=== PATIENT | male | born 1995 | race Caucasian/White ===

== ENCOUNTER 2017-01-29 03:00 | Emergency (ER) | payer OTHER ==
[~2017-01-29] VITALS: Ht 193 cm; Wt 72.5 kg
[~2017-01-29 03:00] MED LIST: BACL20TA PO; MIRA33504 PO; MISC-289; PROP15TA PO; TIZA4CAP3 PO; TRAM50TA PO
[2017-01-29 03:13] VITALS: BP 141/84; PULSE 78; RESP 18; TEMP 98.5; O2SAT 100
--- NOTE | 2017-01-29 03:25 | PD ---
HPI Chief Complaint: Pain: Acute or Chronic Time Seen by Provider: 03:25 Travel History International Travel<30 days: No Contact w/Intl Traveler<30days: No Traveled to known affect area: No History of Present Illness HPI Patient is a 21-year-old male presenting to the emergency department for evaluation of back spasms. Patient states he's had them for over a year since he broke his thoracic spine. He states that for the last several days they have been worse, he has been in physical therapy and 3 days ago he felt as if his back "". He states the cramping became so severe that he had to call 911. Patient has a history of the same, this is an ongoing chronic problem with occasional acute exacerbations. Patient reported the pain is 8 out of 10. PFSH Past Medical History Neurologic: Yes (thoracic spine fracture, paraplegic) Past Surgical History Thoracic Surgery: Yes (thoracic spine) Social History Alcohol Use: No Tobacco Use: No Substance Use: No Allergies-Medications (Allergen,Severity, Reaction): Coded Allergies: No Known Allergies (Unverified , 11/10/15) Reported Meds & Prescriptions Reported Meds & Active Scripts Active Tramadol (Tramadol HCl) 50 Mg Tab 50 Mg PO Q6H PRN Orphenadrine ER 12 HR (Orphenadrine Citrate) 100 Mg Tab 100 Mg PO Q12HR 14 Days Baclofen 20 Mg Tab 40 Mg PO TID Propantheline [place] 15 Mg Tab 15 Mg PO TID Tramadol (Tramadol HCl) 50 Mg Tab 100 Mg PO Q12HR PRN Tizanidine (Tizanidine HCl) 4 Mg Cap 4 Mg PO BID Miralax Powder (Polyethylene Glycol 3350 Powder) 17 Gm Powd 17 Gm PO DAILY PRN 60 Days Mix and dissolve one measuring cap-ful (17 grams) in water or juice. Bath Bench with Back (Device) 1 Mis Mis 1 Ea .ROUTE DIRECTED Review of Systems Except as stated in HPI: all other systems reviewed are Neg Musculoskeletal: Positive: Cramping Physical Exam Narrative GENERAL: Thin, well-developed, alert male. Resting comfortably in no acute distress. SKIN: Focused skin assessment warm/dry. HEAD: Atraumatic. Normocephalic. EYES: Pupils equal and round. No scleral icterus. No injection or drainage. ENT: No nasal bleeding or discharge. Mucous membranes pink and moist. NECK: Trachea midline. No JVD. CARDIOVASCULAR: Regular rate and rhythm. No murmur appreciated. RESPIRATORY: No accessory muscle use. Clear to auscultation. Breath sounds equal bilaterally. GASTROINTESTINAL: Abdomen soft, non-tender, nondistended. Hepatic and splenic margins not palpable. MUSCULOSKELETAL: No obvious deformities. No clubbing. No cyanosis. No edema. NEUROLOGICAL: Awake and alert. No obvious cranial nerve deficits. Normal speech. No tenderness to palpation to cervical, thoracic, or lumbar spine. PSYCHIATRIC: Appropriate mood and affect; insight and judgment normal. Data Data Last Documented VS Vital Signs Date Time Temp Pulse Resp B/P Pulse Ox O2 Delivery O2 Flow Rate FiO2 01/29/17 03:13 98.5 78 18 141/84 100 Orders Comprehensive Metabolic Panel (01/29/17 03:22) Magnesium (Mg) (01/29/17 03:22) Ct Thor Spine W/O Contrast (01/29/17 ) Iv Access Insert/Monitor (01/29/17 03:22) Ketorolac Inj (Toradol Inj) (01/29/17 03:30) Orphenadrine Inj (Norflex Inj) (01/29/17 03:30) Labs Laboratory Tests Test 01/29/17 03:40 Sodium Level 144 MEQ/L Potassium Level 3.7 MEQ/L Chloride Level 108 MEQ/L Carbon Dioxide Level 28.7 MEQ/L Anion Gap 7 MEQ/L Blood Urea Nitrogen 10 MG/DL Creatinine 0.70 MG/DL Estimat Glomerular Filtration 141 ML/MIN Rate Random Glucose 96 MG/DL Calcium Level 9.0 MG/DL Magnesium Level 1.8 MG/DL Total Bilirubin 0.3 MG/DL Aspartate Amino Transf 16 U/L (AST/SGOT) Alanine Aminotransferase 23 U/L (ALT/SGPT) Alkaline Phosphatase 108 U/L Total Protein 7.2 GM/DL Albumin 3.5 GM/DL MDM Medical Decision Making Medical Screen Exam Complete: Yes Emergency Medical Condition: Yes Medical Record Reviewed: Yes Interpretation(s) Last Impressions Thoracic Spine CT 01/29/17 0000 Signed Impressions: Service Date/Time: Sunday, January 29, 2017 03:49 - CONCLUSION: When compared to conventional radiographs 12/01/15, the anterolisthesis of the superior thoracic column with respect to the inferior thoracic column, is similar. Burst fracture fragments at T7 are similar to prior examination with the posterior fragment which protrudes approximately 9 mm into the bony spinal canal. Gregory Salinas MD Laboratory Tests Test 01/29/17 03:40 Sodium Level 144 MEQ/L Potassium Level 3.7 MEQ/L Chloride Level 108 MEQ/L Carbon Dioxide Level 28.7 MEQ/L Anion Gap 7 MEQ/L Blood Urea Nitrogen 10 MG/DL Creatinine 0.70 MG/DL Estimat Glomerular Filtration 141 ML/MIN Rate Random Glucose 96 MG/DL Calcium Level 9.0 MG/DL Magnesium Level 1.8 MG/DL Total Bilirubin 0.3 MG/DL Aspartate Amino Transf 16 U/L (AST/SGOT) Alanine Aminotransferase 23 U/L (ALT/SGPT) Alkaline Phosphatase 108 U/L Total Protein 7.2 GM/DL Albumin 3.5 GM/DL Vital Signs Date Time Temp Pulse Resp B/P Pulse Ox O2 Delivery O2 Flow Rate FiO2 01/29/17 03:13 98.5 78 18 141/84 100 Differential Diagnosis Spasm versus strain versus discogenic pain versus electrolyte abnormality versus other Narrative Course Patient is a 21-year-old male presenting to the emergency room for evaluation of back spasms. Patient has a history of the same secondary to being involved in an [facility] where he subsequently suffered thoracic spine fractures, since that time he states dealt with muscle spasms and takes baclofen however for the last several days his spasms have been getting worse. Imaging of the thoracic spine ordered secondary to patient feeling something "". We'll check electrolytes to rule out normality as a cause for worsening spasms. Patient was given Toradol and Norflex. Will reassess. Patient reassessed approximately one hour after administration, he reports improvement in his symptoms. Labs and imaging were unremarkable, there was no change in CT scan. Patient will be prescribed orphenadrine twice a day, he was advised to avoid taking baclofen and tizanidine will taking orphenadrine. He was also given a short course of tramadol for breakthrough pain. Ice to follow- up with his primary doctor. He was encouraged to return to emergency department for any new or worsening symptoms. Patient verbalized understanding of instructions. Patient is stable for discharge. Diagnosis Primary Impression: Spastic paraplegia Referrals: Primary Care Physician Patient Instructions: General Instructions, Muscle Spasm (ED) Additional Instructions: If you take orphenadrine do not take baclofen or tizanidine at the same time. Follow-up with your primary doctor Return to emergency department for any new or worsening symptoms Med/Other Pt SpecificInfo: Prescription(s) given Scripts Tramadol 50 Mg Tab50 Mg PO Q6H PRN (PAIN) #12 TAB Ref 0 Prov:Jacob Joyner MD 01/29/17 Orphenadrine ER 12 HR 100 Mg [id number] Mg PO Q12HR 14 Days Ref 0 Prov:Jacob Joyner MD 01/29/17 Disposition: 01 DISCHARGE HOME Condition: Stable Jigna Sosa Jan 29, 2017 03:25
[2017-01-29] MEDS ORDERED: ORPHENADRINE INJ 60 MG/2 ML AMP IV ONE (03:30)
[2017-01-29] MEDS ORDERED: KETOROLAC TROMETHAMINE 30 MG/ML (IVP) VIAL IV PUSH ONE (03:30)
[2017-01-29 04:12] LABS: ALT (GPT) 23 U/L (12-78); ANION GAP 7 MEQ/L (5-15); AST (GOT) 16 U/L (15-37); BICARBONATE 28.7 MEQ/L (21.0-32.0); BLOOD UREA NITROGEN 10 MG/DL (7-18); CHLORIDE 108 MEQ/L (98-107); GLOMERULAR FILTRATION RATE 141 ML/MIN (>89); MAGNESIUM 1.8 MG/DL (1.5-2.5); POTASSIUM 3.7 MEQ/L (3.5-5.1); SODIUM (NA) 144 MEQ/L (136-145)
[2017-01-29 04:14] LABS: ALKALINE PHOSPHATASE 108 U/L (45-117); TOTAL BILIRUBIN ADULT 0.3 MG/DL (0.2-1.0)
--- NOTE | 2017-01-29 04:35 | RADRPT ---
EXAM DATE/TIME: 01/29/2017 03:49 [facility] COMPARISON: SPINE THORACIC AP/LAT/SW (3VW), December 01, 2015, 16:24. SPINE THORACIC AP/LAT/SW (3VW), January 17, 2016 , 13:12. CT THORACIC SPINE W/O CONTRAST, November 09, 2015, 10:15. INDICATIONS : Back pain. No recent trauma; history of fusion. RADIATION DOSE: 35.85 CTDIvol (mGy) MEDICAL HISTORY : Hernia, inguinal. Paraplegic. SURGICAL HISTORY : Inguinal hernia repair. Spinal injury, T3-T10 fusion. ENCOUNTER: Initial ACUITY: 4 - 6 days PAIN SCALE: 8/10 LOCATION: thoracic. TECHNIQUE: Volumetric scanning of the thoracic spine was performed. Multiplanar reconstructions in the sagittal , coronal and oblique axial planes were performed. Using automated exposure control and adjustment o f the mA and/or kV according to patient size, radiation dose was kept as low as reasonably achievable to obtain optimal diagnostic quality images. DICOM format image data is available electronically f or review and comparison. FINDINGS: The patient has undergone surgery to stabilize fractures of the posterior elements T6, burst fracture of T7, and T8 fracture involving the right vertebral body and bilateral posterior elements. Transpe dicular screws are present at T3, T4, T5, T8, T9, and T10. The hardware appears grossly intact. The distal fracture fragments at T7 are in similar configuration to the initial trauma CT with large dis placed fragments on both the left and right side, and a posterior displaced fragment in continuity wi th the left lamina extending into the bony spinal canal approximately 9 mm. There is a reversal of t he thoracic curvature at the T7 level at the thoracic column down to T6 is displaced anteriorly with respect to the thoracic column from T8-T9. The degree of anterior subluxation is difficult to precis scar measure, but is on the order of 6 mm. The transpedicular screws at T3 and T4 within the vertebral body. The tip of the left T5 screw exten ds approximately 8 mm anterior to the cortex of the vertebral body and is in contact with the descend ing thoracic aorta. At the T6 level, there is bony fusion of the lamina are fragments. No bony fragments within the bony spinal canal. There is no displacement of the cortical fracture right inner cortical ring about the thecal sac. At the T7 level, there is some bony fusion of the lateral mass fragments, there is no bony fusion acr oss either fracture between the vertebral body and pedicle. At T8, T9, and T10, the transpedicular screw tips are within the vertebral bodies. CONCLUSION: When compared to conventional radiographs 12/01/15, the anterolisthesis of the superior thoracic colum n with respect to the inferior thoracic column, is similar. Burst fracture fragments at T7 are simil ar to prior examination with the posterior fragment which protrudes approximately 9 mm into the bony spinal canal. Gregory Salinas MD on January 29, 2017 at 4:17 Board Certified Radiologist. This report was verified electronically.
[2017-01-29] MEDS ORDERED: ORPH100T PO (05:08)
[2017-01-29] MEDS ORDERED: TRAM50TA PO (05:08)
[2017-02-01] MEDS ORDERED: TIZA4CAP3 PO (13:44)
[2017-02-01] MEDS ORDERED: BACL20TA PO (13:44)
[2017-02-05] MEDS ORDERED: MIRA3350 PO (09:20)
[2017-02-13] MEDS ORDERED: TIZA4CAP3 PO (16:07)
== END 2017-01-29 05:40 | disposition home or self-care (01) ==
LOC: NEPD 03:00
DX: M62.830 Muscle spasm of back (principal); G82.20 Paraplegia, unspecified; Z79.899 Other long term (current) drug therapy
CPT/HCPCS: 72128; 80053; 83735; 96374; 96375; 99285; J1885; J2360

== ENCOUNTER 2017-02-02 18:11 | Emergency (ER) | payer SELFPAY ==
[~2017-02-02] VITALS: Ht 193 cm; Wt 70.0 kg
[~2017-02-02 18:11] MED LIST changes: +ORPH100T PO
[2017-02-02 18:14] VITALS: BP 155/98; PULSE 114; RESP 17; TEMP 98.6; O2SAT 98
--- NOTE | 2017-02-02 18:25 | PD ---
Physical Exam Time Seen by Provider: 18:24 Narrative 21 y/o male w/ hx of paraplegia presents for evaluation of R hip pressure 2-3 days, referred here by pcp. Vital signs reviewed. Seen at triage desk. Awaiting bed placement. Data Data Last Documented VS Vital Signs Date Time Temp Pulse Resp B/P Pulse Ox O2 Delivery O2 Flow Rate FiO2 02/02/17 18:14 98.6 114 17 155/98 98 MDM Medical Record Reviewed: Yes Supervised Visit with TIMOTHY: Pedro De La Cruz Feb 02, 2017 18:25
--- NOTE | 2017-02-02 20:01 | RADRPT ---
EXAM DATE/TIME: 02/02/2017 19:41 [facility] COMPARISON: No previous studies available for comparison. INDICATIONS : Right hip pain and spasms. MEDICAL HISTORY : paraplegic. SURGICAL HISTORY : None. ENCOUNTER: Initial ACUITY: 2 days PAIN SCORE: 10/10 LOCATION: Right hip. FINDINGS: 2 AP views of the pelvis were obtained and are mildly rotated. Crosstable lateral views of the right hip were obtained as well. The hips appear intact with no evidence of fracture or malalignment. The r ight hip is externally rotated. CONCLUSION: Non-standard study secondary to rotation with no acute fracture or malalignment. The right hip is ext ernally rotated. Ulisses Mcwilliams MD on February 02, 2017 at 19:57 Board Certified Radiologist. This report was verified electronically.
--- NOTE | 2017-02-02 20:56 | PD ---
HPI Chief Complaint: Hip Injury Time Seen by Provider: 19:24 Travel History International Travel<30 days: No Contact w/Intl Traveler<30days: No Traveled to known affect area: No History of Present Illness HPI Patient is a 21 y/o male with history of paraplegia, presents for evaluation of R hip pressure vs possible hip dislocation. patient reports that he has been feeling this sensation to his right hip for the past 2-3 days. Patient denies any trauma or fall. Patient reports that he saw his primary care doctor yesterday who ordered x-rays of his hip, reports that he has not gone for these xrays yet. Reports increased discomfort today. He called his pcp who told him to come to the ER for xrays of his hip. NO fever/chills. No other c/o. PFSH Past Medical History Arthritis: Yes Neurologic: Yes (thoracic spine fracture, paraplegic) Influenza Vaccination: No Past Surgical History Neurologic Surgery: Yes (BACK SURGERY 2016 T6-T7) Thoracic Surgery: Yes (thoracic spine) Other Surgery: Yes (L TOE AND L KNEE) Social History Alcohol Use: No Tobacco Use: No Substance Use: No Allergies-Medications (Allergen,Severity, Reaction): Coded Allergies: No Known Allergies (Unverified , 02/02/17) Reported Meds & Prescriptions Reported Meds & Active Scripts Active Baclofen 20 Mg Tab 40 Mg PO TID Tizanidine (Tizanidine HCl) 4 Mg Cap 4 Mg PO BID Orphenadrine ER 12 HR (Orphenadrine Citrate) 100 Mg Tab 100 Mg PO Q12HR 14 Days Propantheline [place] 15 Mg Tab 15 Mg PO TID Tramadol (Tramadol HCl) 50 Mg Tab 100 Mg PO Q12HR PRN Review of Systems General / Constitutional: No: Fever Eyes: No: Visual changes HENT: No: Headaches Cardiovascular: No: Chest Pain or Discomfort Respiratory: No: Shortness of Breath Gastrointestinal: No: Abdominal Pain Genitourinary: No: Dysuria Musculoskeletal: Positive: Pain (right hip pain) Skin: No Rash Neurologic: No: Weakness Psychiatric: No: Depression Endocrine: No: Polydipsia Hematologic/Lymphatic: No: Easy Bruising Physical Exam Narrative GENERAL: NAD SKIN: Focused skin assessment warm/dry. HEAD: Atraumatic. Normocephalic. EYES: Pupils equal and round. No scleral icterus. No injection or drainage. ENT: No nasal bleeding or discharge. Mucous membranes pink and moist. NECK: Trachea midline. No JVD. CARDIOVASCULAR: Regular rate and rhythm. No murmur appreciated. RESPIRATORY: No accessory muscle use. Clear to auscultation. Breath sounds equal bilaterally. GASTROINTESTINAL: Abdomen soft, non-tender, nondistended. Hepatic and splenic margins not palpable. MUSCULOSKELETAL: No obvious deformities. patient contracted to lower extremities , pain with ROM to right hip NEUROLOGICAL: Awake and alert PSYCHIATRIC: Appropriate mood and affect; insight and judgment normal. Data Data Last Documented VS Vital Signs Date Time Temp Pulse Resp B/P Pulse Ox O2 Delivery O2 Flow Rate FiO2 02/02/17 18:14 98.6 114 17 155/98 98 Orders Hip, Uni(Ap&Lat) W Ap Pelvis (02/02/17 ) Ibuprofen (Motrin) (02/02/17 21:00) MDM Medical Decision Making Medical Screen Exam Complete: Yes Emergency Medical Condition: Yes Interpretation(s) Vital Signs Date Time Temp Pulse Resp B/P Pulse Ox O2 Delivery O2 Flow Rate FiO2 02/02/17 18:14 98.6 114 17 155/98 98 Differential Diagnosis hip dislocation vs fracture vs sprain Narrative Course 21 year old male with right sided hip pain for past 2-3 days. no trauma xray of hip ordered. Last Impressions Hip and Pelvis X-Ray 02/02/17 0000 Signed Impressions: Service Date/Time: Sunday, February 02, 2017 19:41 - CONCLUSION: Non-standard study secondary to rotation with no acute fracture or malalignment. The right hip is externally rotated. Ulisses Mcwilliams MD patient contracted at baseline - xray with no acute fracture or malalignment. will have patient follow up with pcp and return to ER as needed Diagnosis Primary Impression: Hip pain, right Patient Instructions: General Instructions Additional Instructions: Please follow up with your primary care doctor Return to ER as needed Please bring your copy of your xray to your doctor's office for follow up Disposition: 01 DISCHARGE HOME Condition: Stable Jessica Mcfarlane DO Feb 02, 2017 20:56
[2017-02-02] MEDS ORDERED: IBUPROFEN 600 MG TAB PO ONE (21:00)
[2017-02-05] MEDS ORDERED: MIRA3350 PO (09:20)
== END 2017-02-02 21:49 | disposition home or self-care (01) ==
LOC: NEPE 18:11
DX: M25.551 Pain in right hip (principal); G82.20 Paraplegia, unspecified; M19.90 Unspecified osteoarthritis, unspecified site; Z79.899 Other long term (current) drug therapy
CPT/HCPCS: 73502; 99283

== ENCOUNTER 2017-02-08 04:57 | Emergency (ER) | payer SELFPAY ==
[~2017-02-08] VITALS: Ht 182.9 cm; Wt 70.0 kg
[~2017-02-08 04:57] MED LIST changes: +MIRA3350 PO; -MIRA33504 PO; -MISC-289
[2017-02-08 05:02] VITALS: BP 131/64; PULSE 82; RESP 18; TEMP 97.6; O2SAT 99
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
[2017-02-08] MEDS ORDERED: MORPHINE SULFATE 4 MG/ML INJ IM ONE (05:30)
[2017-02-08] MEDS ORDERED: ORPHENADRINE INJ 60 MG/2 ML AMP IM ONE (05:45)
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
[2017-02-08] MEDS ORDERED: TIZA4CAP3 PO (12:24)
[2017-02-08] MEDS ORDERED: TRAM50TA PO (12:25)
[2017-02-13] MEDS ORDERED: TIZA4CAP3 PO (16:07)
== END 2017-02-08 06:50 | disposition home or self-care (01) ==
LOC: NEPE 04:57
DX: M62.838 Other muscle spasm (principal); G83.9 Paralytic syndrome, unspecified; M25.561 Pain in right knee; W22.8XXA Striking against or struck by other objects, initial encounter; Y93.89 Activity, other specified; Y92.003 Bedroom of unspecified non-institutional (private) residence as the place of occurrence of the external cause
CPT/HCPCS: 73560; 96372; 99284; J2270; J2360

== ENCOUNTER 2017-05-08 18:01 | Emergency (ER) | payer MEDICAID, OTHER ==
[~2017-05-08] VITALS: Ht 193 cm; Wt 70.0 kg
[2017-05-08 18:03] VITALS: BP 119/57; PULSE 105; RESP 18; TEMP 98.8; O2SAT 99
--- NOTE | 2017-05-08 21:09 | PD ---
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 He presents for evaluation of left-sided rib cage pain. He reports that yesterday he was attempting to transfer from his wheelchair onto the couch when the wheelchair slid from underneath him and he fell, hitting his rib cage against the wheel. He is complaining of some pain to the anterior left lower rib cage. The pain is a aching pain which is worse with inspiration. He denies shortness of breath , nausea or vomiting. He reports decreased sensation in his abdomen secondary to the thoracic spinal cord injury, denies abdominal pain. He denies neck or back injury. He takes tramadol for chronic pain. He has no other complaints at this time. [facility] Past Medical History Arthritis: Yes Neurologic: Yes (thoracic spine fracture, paraplegic) Past Surgical History Neurologic Surgery: Yes (BACK SURGERY 2016 T6-T7) Thoracic Surgery: Yes (thoracic spine) Other Surgery: Yes (L TOE AND L KNEE) Social History Alcohol Use: No Tobacco Use: No Substance Use: No Allergies-Medications (Allergen,Severity, Reaction): Coded Allergies: No Known Allergies (Unverified , 05/08/17) Reported Meds & Prescriptions Reported Meds & Active Scripts Active Lidocaine Patch 12 HR (Lidocaine) 5 % Patch 1 Patch TOPICAL DAILY PRN Remove patch after 12 hours Ibuprofen 800 Mg Tab 800 Mg PO Q6HR PRN Tramadol (Tramadol HCl) 50 Mg Tab 100 Mg PO Q12HR PRN Tizanidine (Tizanidine HCl) 4 Mg Cap 4 Mg PO BID Baclofen 20 Mg Tab 40 Mg PO TID Review of Systems Except as stated in HPI: all other systems reviewed are Neg Physical Exam Narrative GENERAL: Well-developed well-nourished male in no acute distress SKIN: Warm and dry. HEAD: Atraumatic. Normocephalic. EYES: Pupils equal and round. No scleral icterus. No injection or drainage. ENT: No nasal bleeding or discharge. Mucous membranes pink and moist. NECK: Trachea midline. No JVD. CARDIOVASCULAR: Regular rate and rhythm. No murmur appreciated. RESPIRATORY: No accessory muscle use. Clear to auscultation. Breath sounds equal bilaterally. GASTROINTESTINAL: Abdomen soft, non-tender, nondistended. Hepatic and splenic margins not palpable. MUSCULOSKELETAL: Spasticity is noted to the lower extremities, right leg greater than left leg. The patient has focal tenderness to palpation to the anterior left lower rib cage without bony crepitus, bruising, soft tissue swelling or deformity. There is no tenderness to palpation along the cervical thoracic or lumbar midline spine. NEUROLOGICAL: Awake and alert. No obvious cranial nerve deficits. Data Data Last Documented VS Vital Signs Date Time Temp Pulse Resp B/P (MAP) Pulse Ox O2 Delivery O2 Flow Rate FiO2 05/08/17 18:03 98.8 105 18 119/57 (77) 99 Room Air Orders Orders Ribs, Uni (W/Exp Cxr-Min 3vw) (05/08/17 ) Ketorolac Inj (Toradol Inj) (05/08/17 21:15) MDM Medical Decision Making Medical Screen Exam Complete: Yes Emergency Medical Condition: Yes Medical Record Reviewed: Yes Differential Diagnosis Rib contusion, rib fracture, pneumothorax, hemothorax, splenic laceration Narrative Course Physical examination is reassuring. He has mild focal tenderness to palpation to the anterior left lower rib cage with no deformity, crepitus, ecchymosis. Rib x-ray has been ordered. The patient will be given a dose of Toradol. X-ray imaging reveals no acute abnormalities and the patient reports improvement with Toradol administration. He appears to have a contusion to his ribs. He will be discharged with Lidoderm patches and a short course of ibuprofen to use in conjunction with his prescribed tramadol. Diagnosis Primary Impression: Contusion of rib on left side Qualified Codes: S20.212A - Contusion of left front wall of thorax, initial encounter Additional Instructions: Medication as needed. Take ibuprofen with meals. Follow-up with primary care as needed and return for any emergent medical conditions. Med/Other Pt SpecificInfo: Prescription(s) given Scripts Lidocaine Patch 12 HR (Lidocaine Patch 12 HR) 5 % Patch 1 PATCH TOPICAL DAILY Y for PAIN, #1 BOX 1 Refill Remove patch after 12 hours Prov: Italo Hopkins MD 05/08/17 Ibuprofen (Ibuprofen) 800 Mg Tab 800 MG PO Q6HR Y for PAIN, #40 TAB 0 Refills Prov: Italo Hopkins MD 05/08/17 Disposition: 01 DISCHARGE HOME Condition: Stable Pedro Espinoza May 08, 2017 21:09
[2017-05-08] MEDS ORDERED: KETOROLAC TROMETHAMINE 60 MG/2 ML (IM) VIAL IM ONE (21:15)
[2017-05-08] MEDS ORDERED: IBUP800T23 PO (22:32)
[2017-05-08] MEDS ORDERED: LIDO1PAD52 TOPICAL (22:32)
--- NOTE | 2017-05-08 22:41 | RADRPT ---
EXAM DATE/TIME: 05/08/2017 21:15 [facility] COMPARISON: No previous studies available for comparison. INDICATIONS : Lower left rib pain. Patient states he fell while transfering from his wheelchair to the couch. MEDICAL HISTORY : None. SURGICAL HISTORY : Fusion, thoracic. IVC filter. ENCOUNTER: Initial ACUITY: 2 days PAIN SCORE: 6/10 LOCATION: Left chest FINDINGS: Multiple views of the left ribs were performed. There is no evidence of displaced fracture. No dest ructive lesions or areas of periosteal thickening are seen. Expiratory view of the chest is negative for pneumothorax. The mediastinal structures are midline. Stabilization rods are seen throughout the thoracic spine. There is an IVC filter in place. There are punctate high density areas seen throughout the abdomen likely related to ingested material within t he colon. CONCLUSION: The left ribs appear intact. Tomer Alvares MD on May 08, 2017 at 22:38 Board Certified Radiologist. This report was verified electronically.
== END 2017-05-09 01:16 | disposition home or self-care (01) ==
LOC: NEPD 18:01
DX: S20.212A Contusion of left front wall of thorax, initial encounter (principal); W05.0XXA Fall from non-moving wheelchair, initial encounter; Y93.89 Activity, other specified
CPT/HCPCS: 71101; 96372; 99284; J1885

== ENCOUNTER 2017-06-13 10:38 | Emergency (ER) | payer MEDICAID, OTHER ==
[~2017-06-13] VITALS: Ht 193 cm; Wt 70.0 kg
[~2017-06-13 10:38] MED LIST changes: +IBUP1TAB7 PO; +LIDO1PAD52 TOPICAL; -MIRA3350 PO; -ORPH100T PO; -PROP15TA PO
[2017-06-13 10:40] VITALS: BP 120/56; PULSE 80; RESP 18; TEMP 97.7; O2SAT 99
[2017-06-13] MEDS ORDERED: NAPR500T2 PO (11:02)
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
== END 2017-06-13 11:36 | disposition home or self-care (01) ==
LOC: NEPK 10:38
DX: S76.011A Strain of muscle, fascia and tendon of right hip, initial encounter (principal); S86.911A Strain of unspecified muscle(s) and tendon(s) at lower leg level, right leg, initial encounter; G82.20 Paraplegia, unspecified; Z87.39 Personal history of other diseases of the musculoskeletal system and connective tissue; Z86.69 Personal history of other diseases of the nervous system and sense organs; X58.XXXA Exposure to other specified factors, initial encounter
CPT/HCPCS: 99283

== ENCOUNTER 2017-06-21 13:37 | Emergency (ER) | payer MEDICAID ==
[~2017-06-21] VITALS: Ht 193 cm; Wt 70.5 kg
[~2017-06-21 13:37] MED LIST changes: -IBUP1TAB7 PO; -LIDO1PAD52 TOPICAL; +NAPR500T2 PO
[2017-06-21 13:38] VITALS: BP 137/61; PULSE 95; RESP 18; TEMP 97.8; O2SAT 100
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
[2017-06-21] MEDS ORDERED: LORazepam 2 MG/ML VIAL IM ONE (15:00)
[2017-06-21] MEDS ORDERED: MORPHINE SULFATE 4 MG/ML INJ IM ONE (15:00)
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
[2017-07-03] MEDS ORDERED: CALCTAB33 PO (12:25)
== END 2017-06-21 17:54 | disposition home or self-care (01) ==
LOC: NEPD 13:37
DX: M54.5 Low back pain (principal); M41.9 Scoliosis, unspecified; G82.20 Paraplegia, unspecified; M19.90 Unspecified osteoarthritis, unspecified site; Z99.3 Dependence on wheelchair
CPT/HCPCS: 72131; 96372; 99285; J2060

== ENCOUNTER 2017-08-02 15:17 | Emergency (ER) | payer MEDICAID ==
[~2017-08-02] VITALS: Ht 193 cm; Wt 71.0 kg
[~2017-08-02 15:17] MED LIST changes: +CALCTAB33 PO
[2017-08-02 15:23] VITALS: BP 125/60; PULSE 75; RESP 16; TEMP 98.1; O2SAT 97
[2017-08-02] MEDS ORDERED: ONDANSETRON HCL 4 MG/2 ML VIAL IVP ONE (17:45)
[2017-08-02] MEDS ORDERED: SODIUM CHLORIDE 0.9% FLUSH 10 ML FLUSH IVF PRN (17:45)
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
[2017-08-02 18:15] VITALS: BP 118/55; PULSE 86; RESP 19; O2SAT 100
[2017-08-02 18:54] LABS: AUTOMATED NEUTROPHIL # 3.4 TH/MM3 (1.8-7.7); BASOPHIL % 0.2 % (0.0-2.0); EOSINOPHIL # 0.1 TH/MM3 (0-0.4); EOSINOPHIL % 1.7 % (0.0-4.0); HEMATOCRIT 43.1 % (39.0-51.0); HEMOGLOBIN 14.6 GM/DL (13.0-17.0); LYMPH % 36.2 % (9.0-44.0); LYMPHOCYTE # 2.3 TH/MM3 (1.0-4.8); MEAN CELL VOLUME 81.9 FL (80.0-100.0); MEAN CORPUSCULAR HEMOGLOBIN 27.8 PG (27.0-34.0); MEAN CORPUSCULAR HGB CONC 33.9 % (32.0-36.0); MEAN PLATELET VOLUME 8.8 FL (7.0-11.0); MONO % 7.9 % (0.0-8.0); MONOCYTE # 0.5 TH/MM3 (0-0.9); PLATELET COUNT 196 TH/MM3 (150-450); RED BLOOD COUNT 5.27 MIL/MM3 (4.50-5.90); WHITE BLOOD COUNT 6.3 TH/MM3 (4.0-11.0)
[2017-08-02 18:57] LABS: BICARBONATE 24.1 MEQ/L (21.0-32.0); CALCIUM 8.9 MG/DL (8.5-10.1); CREATININE 0.86 MG/DL (0.60-1.30)
[2017-08-02 19:03] LABS: BACTERIA, URINE MOD /hpf; BILIRUBIN, URINE NEG (NEG); BLOOD, URINE MOD (NEG); GLUCOSE,URINE NEG (NEG); HYALINE CAST, URINE 2 /lpf (RARE); KETONE, URINE NEG (NEG); NITRITE,URINE NEG (NEG); SQUAMOUS EPITHELIAL CELL URINE <1 /hpf (0-5); URINE COLOR YELLOW (YELLW/STRAW); URINE LEUKOCYTE ESTERASE LARGE (NEG)
--- NOTE | 2017-08-02 19:09 | RADRPT ---
EXAM DATE/TIME: 08/02/2017 18:40 [facility] COMPARISON: CT ABDOMEN & PELVIS W CONTRAST, January 20, 2016, 16:47. INDICATIONS : Bilateral flank pain. ORAL CONTRAST: No oral contrast ingested. RADIATION DOSE: 7.90 CTDIvol (mGy) MEDICAL HISTORY : None SURGICAL HISTORY : Inguinal hernia repair. IVC Filter placement.T3-T10 fusion. ENCOUNTER: Initial ACUITY: 3 days PAIN SCALE: 9/10 LOCATION: Bilateral flank TECHNIQUE: Volumetric scanning of the abdomen and pelvis was performed. Using automated exposure control and ad justment of the mA and/or kV according to patient size, radiation dose was kept as low as reasonably achievable to obtain optimal diagnostic quality images. DICOM format image data is available electro nically for review and comparison. FINDINGS: LOWER LUNGS: The visualized lower lungs are clear. LIVER: Visualized portions are unremarkable. SPLEEN: Visualized portions unremarkable. PANCREAS: Within normal limits. KIDNEYS: Normal in size and shape. There is no mass, stone, or hydronephrosis. ADRENAL GLANDS: Within normal limits. VASCULAR: No aortic aneurysm. Inferior vena caval filter in good stable position. BOWEL/MESENTERY: The stomach, small bowel, and colon demonstrate no acute abnormality. There is no free intraperitone al air or fluid. ABDOMINAL WALL: Within normal limits. RETROPERITONEUM: There is no lymphadenopathy. BLADDER: Slightly less than 2 cm crescentic calcification in the dependent bladder base may be a bladder stone . No wall thickening or abnormal dilatation. REPRODUCTIVE: Within normal limits. INGUINAL: There is no lymphadenopathy or hernia. MUSCULOSKELETAL: Mild kyphoscoliosis. Chronic appearing lumbosacral pars fractures. No acute bony findings. CONCLUSION: No acute CT findings in the abdomen or pelvis. Tomer Newberry MD on August 02, 2017 at 19:03 Board Certified Radiologist. This report was verified electronically.
[2017-08-02 19:28] VITALS: BP 125/57; PULSE 65; RESP 16; O2SAT 97
[2017-08-02] MEDS ORDERED: CIPR-9 PO (20:37)
[2017-08-02] MEDS ORDERED: cefTRIAXone INJ 1,000 MG in SODIUM CHLORIDE 0.9% INJ 100 ML IV ONE (20:45)
== END 2017-08-02 22:12 | disposition home or self-care (01) ==
LOC: NEPC 15:17
DX: N39.0 Urinary tract infection, site not specified (principal); R31.9 Hematuria, unspecified; M54.5 Low back pain; G82.20 Paraplegia, unspecified
CPT/HCPCS: 74176; 80048; 81001; 85025; 87086; 96374; 99285; J0696

== ENCOUNTER 2017-09-09 10:29 | Emergency (ER) | payer MEDICAID ==
[~2017-09-09] VITALS: Ht 193 cm; Wt 70.0 kg
[~2017-09-09 10:29] MED LIST changes: +CIPR-9 PO
[2017-09-09 10:30] VITALS: BP 131/61; PULSE 100; RESP 20; TEMP 99.2; O2SAT 97
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
[2017-09-09] MEDS ORDERED: KETOROLAC TROMETHAMINE 60 MG/2 ML (IM) VIAL IM ONE (11:00)
[2017-09-09] MEDS ORDERED: ORPHENADRINE INJ 60 MG/2 ML AMP IM ONE (11:00)
--- NOTE | 2017-09-09 12:24 | RADRPT ---
EXAM DATE/TIME: 09/09/2017 11:44 [facility] COMPARISON: HIP RIGHT (AP&LAT 2/3VWS) W AP PELVIS, February 02, 2017, 19:41. INDICATIONS : Right hip pain MEDICAL HISTORY : None. SURGICAL HISTORY : Fusion, thoracic. IVC filter. ENCOUNTER: Initial ACUITY: 3 days PAIN SCORE: 7/10 LOCATION: Right pelvis FINDINGS: Examination of the right hip was performed with AP Pelvis. The primary and secondary trabecular [place] of the femoral neck is intact. The hip joint is of normal width without significant sclerosis or bony hypertrophy. The acetabulum is grossly intact. Scoliosis. Copious amount stool the rectum. Inf erior vena cava filter partially seen at L3. CONCLUSION: No fracture seen. Bryant Ridley MD on September 09, 2017 at 12:22 Board Certified Radiologist. This report was verified electronically.
--- NOTE | 2017-09-09 12:27 | RADRPT ---
EXAM DATE/TIME: 09/09/2017 11:48 [facility] COMPARISON: No previous studies available for comparison. INDICATIONS : Right knee pain MEDICAL HISTORY : None. SURGICAL HISTORY : Fusion, thoracic. IVC filter. ENCOUNTER: Initial ACUITY: 2 days PAIN SCORE: 8/10 LOCATION: Right knee FINDINGS: Two view examination of the right knee demonstrates no evidence of fracture or dislocation. Bony min eralization is normal. Soft tissue swelling. CONCLUSION: Soft tissue swelling without fracture. Bryant Ridley MD on September 09, 2017 at 12:24 Board Certified Radiologist. This report was verified electronically.
[2017-09-09] MEDS ORDERED: IBUP-232 PO (12:45)
[2017-09-09] MEDS ORDERED: ORPH100T PO (12:45)
== END 2017-09-09 13:14 | disposition home or self-care (01) ==
LOC: NEPD 10:29
DX: G82.20 Paraplegia, unspecified (principal); M62.838 Other muscle spasm; M19.90 Unspecified osteoarthritis, unspecified site; Z79.899 Other long term (current) drug therapy
CPT/HCPCS: 73502; 73560; 96372; 99284; J1885; J2360

== ENCOUNTER 2017-10-20 12:44 | Emergency (ER) | payer MEDICAID ==
[~2017-10-20] VITALS: Ht 182.9 cm; Wt 68.0 kg
[~2017-10-20 12:44] MED LIST changes: -CIPR-9 PO; +IBUP-232 PO; -NAPR500T2 PO; +ORPH100T PO
[2017-10-20 12:47] VITALS: BP 141/63; PULSE 71; RESP 16; TEMP 98.1; O2SAT 100
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
--- NOTE | 2017-10-20 14:04 | RADRPT ---
EXAM DATE/TIME: 10/20/2017 13:33 [facility] COMPARISON: PELVIS AP ONLY, November 09, 2015, 9:54. INDICATIONS : Right sided hip pain. MEDICAL HISTORY : Paraplegic. SURGICAL HISTORY : Fusion, thoracic. IVC filter. ENCOUNTER: Initial ACUITY: 3 days PAIN SCORE: 5/10 LOCATION: Right hip. FINDINGS: A single frontal view of the pelvis demonstrates no evidence of fracture. The bony pelvic ring is in tact. Bony mineralization is normal. The soft tissues are intact. CONCLUSION: No acute disease. Oksana Allen MD on October 20, 2017 at 14:01 Board Certified Radiologist. This report was verified electronically.
--- NOTE | 2017-10-20 14:08 | RADRPT ---
EXAM DATE/TIME: 10/20/2017 13:34 [facility] COMPARISON: No previous studies available for comparison. INDICATIONS : Right femur pain. MEDICAL HISTORY : Para plegic. SURGICAL HISTORY : Fusion, thoracic. IVC filter. ENCOUNTER: Initial ACUITY: 3 days PAIN SCORE: 5/10 LOCATION: Right femur. FINDINGS: Two view examination of the right femur demonstrates no evidence of fracture or dislocation. Bony mi neralization is normal. The soft tissue structures are intact. CONCLUSION: No acute disease. Oksana Allen MD on October 20, 2017 at 14:05 Board Certified Radiologist. This report was verified electronically.
--- NOTE | 2017-10-20 14:09 | RADRPT ---
EXAM DATE/TIME: 10/20/2017 13:43 [facility] COMPARISON: No previous studies available for comparison. INDICATIONS : Right foot pain. MEDICAL HISTORY : Paraplegic. SURGICAL HISTORY : Fusion, thoracic. IVC filter. ENCOUNTER: Initial ACUITY: 3 days PAIN SCORE: 5/10 LOCATION: Right foot. FINDINGS: Three view examination of the right foot demonstrates no soft tissue swelling, dislocation, or fractu re. The tarsal bones appear intact. The interphalangeal and metatarsophalangeal joints are intact. The calcaneus is intact. The bones are mildly osteopenic. CONCLUSION: No acute disease. Oksana Allen MD on October 20, 2017 at 14:06 Board Certified Radiologist. This report was verified electronically.
== END 2017-10-20 14:47 | disposition home or self-care (01) ==
LOC: NEPD 12:44
DX: S70.01XA Contusion of right hip, initial encounter (principal); M25.571 Pain in right ankle and joints of right foot; G82.20 Paraplegia, unspecified; W17.89XA Other fall from one level to another, initial encounter; Z79.899 Other long term (current) drug therapy
CPT/HCPCS: 72170; 73552; 73630; 99283

== ENCOUNTER 2017-11-10 19:32 | Emergency (ER) | payer MEDICAID, OTHER ==
[2017-11-10 19:48] VITALS: BP 111/56; PULSE 93; RESP 16; TEMP 98.2; O2SAT 100
[2017-11-10 20:20] VITALS: BP 116/55; PULSE 84; RESP 17; O2SAT 97
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
[2017-11-10] MEDS ORDERED: ORPHENADRINE INJ 60 MG/2 ML AMP IM ONE (20:30)
[2017-11-10] MEDS ORDERED: KETOROLAC TROMETHAMINE 60 MG/2 ML (IM) VIAL IM ONE (20:30)
--- NOTE | 2017-11-10 21:17 | RADRPT ---
EXAM DATE/TIME: 11/10/2017 20:47 [facility] COMPARISON: HIP RIGHT (AP&LAT 2/3VWS) WO AP PELVIS, November 10, 2017, 20:49. INDICATIONS : Left hip pain after fall from wheelchair. MEDICAL HISTORY : Paraplegic. SURGICAL HISTORY : Inguinal hernia repair. IVC Filter placement.T3-T10 fusion. ENCOUNTER: Initial ACUITY: 1 day PAIN SCORE: 10/10 LOCATION: Left hip. FINDINGS: Examination of the left hip was performed with AP Pelvis. The primary and secondary trabecular patte rn of the femoral neck is intact. The hip joint is of normal width without significant sclerosis or bony hypertrophy. The acetabulum is grossly intact. CONCLUSION: No acute disease. Tomer Alvares MD on November 10, 2017 at 21:13 Board Certified Radiologist. This report was verified electronically.
--- NOTE | 2017-11-10 21:22 | RADRPT ---
EXAM DATE/TIME: 11/10/2017 20:49 [facility] COMPARISON: No previous studies available for comparison. INDICATIONS : Right hip pain after fall from wheelchair. MEDICAL HISTORY : Paraplegic. SURGICAL HISTORY : Inguinal hernia repair. IVC Filter placement.T3-T10 fusion. ENCOUNTER: Initial ACUITY: 1 day PAIN SCORE: 10/10 LOCATION: Right hip. FINDINGS: No fracture is seen. The right hip joint is normally aligned. There is hypertrophic change and buttre ssing at the superior lateral margin between the superior aspect of the femoral head and neck region which is typically a chronic change. CONCLUSION: No acute abnormality is seen. Tomer Alvares MD on November 10, 2017 at 21:15 Board Certified Radiologist. This report was verified electronically.
== END 2017-11-10 22:32 | disposition home or self-care (01) ==
LOC: NEPD 19:32
DX: M25.551 Pain in right hip (principal); M25.552 Pain in left hip; R10.2 Pelvic and perineal pain; M19.90 Unspecified osteoarthritis, unspecified site; G82.20 Paraplegia, unspecified; W05.0XXA Fall from non-moving wheelchair, initial encounter
CPT/HCPCS: 73502; 96372; 99283; J1885; J2360

== ENCOUNTER 2017-11-20 20:12 | Emergency (ER) | payer MEDICAID ==
[~2017-11-20 20:12] MED LIST changes: -CALCTAB33 PO; -IBUP-232 PO; -ORPH100T PO; -TRAM50TA PO
[2017-11-20 20:20] VITALS: BP 112/53; PULSE 101; RESP 20; TEMP 98.3; O2SAT 98
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
[2017-11-20] MEDS ORDERED: MORPHINE SULFATE 4 MG/ML INJ IV PUSH ONE (21:45)
[2017-11-20] MEDS ORDERED: SODIUM CHLOR 0.9% 1000 ML INJ 1,000 ML IV ONE (21:45)
[2017-11-20 22:12] LABS: BACTERIA, URINE RARE /hpf; BILIRUBIN, URINE NEG (NEG); BLOOD, URINE MOD (NEG); GLUCOSE,URINE NEG (NEG); KETONE, URINE 10 mg/dL (NEG); NITRITE,URINE NEG (NEG); PH, URINE 5.5 (5.0-8.5); SQUAMOUS EPITHELIAL CELL URINE 1 /hpf (0-5); URINE COLOR YELLOW (YELLW/STRAW); URINE LEUKOCYTE ESTERASE MOD (NEG)
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
[2017-11-20] MEDS ORDERED: cefTRIAXone INJ 1,000 MG in SODIUM CHLORIDE 0.9% INJ 100 ML IV ONE (22:30)
[2017-11-20 22:32] LABS: AUTOMATED NEUTROPHIL # 6.9 TH/MM3 (1.8-7.7); BASOPHIL % 0.1 % (0.0-2.0); EOSINOPHIL % 0.4 % (0.0-4.0); HEMATOCRIT 41.6 % (39.0-51.0); LYMPH % 20.3 % (9.0-44.0); LYMPHOCYTE # 1.9 TH/MM3 (1.0-4.8); MEAN CELL VOLUME 83.1 FL (80.0-100.0); MEAN CORPUSCULAR HGB CONC 33.7 % (32.0-36.0); MEAN PLATELET VOLUME 8.9 FL (7.0-11.0); MONO % 5.6 % (0.0-8.0); MONOCYTE # 0.5 TH/MM3 (0-0.9); NEUT % 73.6 % (16.0-70.0); PLATELET COUNT 214 TH/MM3 (150-450); RED BLOOD COUNT 5.01 MIL/MM3 (4.50-5.90); RED CELL DISTRIBUTION WIDTH 14.5 % (11.6-17.2); WHITE BLOOD COUNT 9.3 TH/MM3 (4.0-11.0)
[2017-11-20 22:48] LABS: BICARBONATE 23.8 MEQ/L (21.0-32.0); CALCIUM 9.3 MG/DL (8.5-10.1); CREATININE 1.01 MG/DL (0.60-1.30)
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
[2017-11-20] MEDS ORDERED: MACR100C2 PO (23:18)
== END 2017-11-21 11:00 | disposition home or self-care (01) ==
LOC: NEPD 20:12
DX: M62.838 Other muscle spasm (principal); N39.0 Urinary tract infection, site not specified; R31.9 Hematuria, unspecified; N21.0 Calculus in bladder; F12.90 Cannabis use, unspecified, uncomplicated; G82.20 Paraplegia, unspecified; Z99.3 Dependence on wheelchair
CPT/HCPCS: 72128; 72131; 74176; 80048; 81001; 85025; 87077; 87086; 87186; 96361; 96365; 96375; 99284; J0696; J2270; J7030

== ENCOUNTER 2017-12-31 12:18 | Emergency (ER) | payer SELFPAY ==
[~2017-12-31] VITALS: Ht 182.9 cm; Wt 70.0 kg
[~2017-12-31 12:18] MED LIST changes: +MACR100C2 PO
[2017-12-31 12:35] VITALS: BP 138/63; PULSE 98; RESP 20; TEMP 98.7; O2SAT 99
[2017-12-31] MEDS ORDERED: ONDANSETRON ODT 4 MG TAB PO ONE (13:00)
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
[2017-12-31] MEDS ORDERED: SILV1CRE20 TOPICAL (13:44)
[2017-12-31] MEDS ORDERED: IBUP1TAB7 PO (13:44)
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
== END 2017-12-31 14:10 | disposition home or self-care (01) ==
LOC: NEPK 12:18
DX: T21.22XA Burn of second degree of abdominal wall, initial encounter (principal); X10.1XXA Contact with hot food, initial encounter; M25.551 Pain in right hip; W19.XXXA Unspecified fall, initial encounter; G82.20 Paraplegia, unspecified; F12.90 Cannabis use, unspecified, uncomplicated
CPT/HCPCS: 73502; 99283

== ENCOUNTER 2018-01-22 12:38 | Emergency (ER) | payer SELFPAY ==
[~2018-01-22] VITALS: Ht 193 cm; Wt 70.0 kg
[~2018-01-22 12:38] MED LIST changes: +IBUP1TAB7 PO; +SILV1CRE20 TOPICAL
[2018-01-22 12:50] VITALS: BP 122/57; PULSE 70; RESP 16; TEMP 97.9; O2SAT 99
[2018-01-22] MEDS ORDERED: KETOROLAC TROMETHAMINE 60 MG/2 ML (IM) VIAL IM ONE (15:00)
[2018-01-22] MEDS ORDERED: ORPHENADRINE INJ 60 MG/2 ML AMP IM ONE (15:00)
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
== END 2018-01-22 16:03 | disposition home or self-care (01) ==
LOC: NEPK 12:38
DX: G82.20 Paraplegia, unspecified (principal); M19.90 Unspecified osteoarthritis, unspecified site; Z79.899 Other long term (current) drug therapy
CPT/HCPCS: 96372; 99283; J1885; J2360

== ENCOUNTER 2018-01-25 13:17 | Emergency (ER) | payer MEDICAID ==
[~2018-01-25] VITALS: Ht 193 cm; Wt 70.5 kg
[~2018-01-25 13:17] MED LIST changes: -IBUP1TAB7 PO; -MACR100C2 PO; -SILV1CRE20 TOPICAL
[2018-01-25 13:27] VITALS: BP 127/58; PULSE 64; RESP 15; TEMP 98; O2SAT 100
[2018-01-25] MEDS ORDERED: ORPHENADRINE INJ 60 MG/2 ML AMP IM ONE (17:30)
[2018-01-25] MEDS ORDERED: KETOROLAC TROMETHAMINE 60 MG/2 ML (IM) VIAL IM ONE (17:30)
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
[2018-01-25] MEDS ORDERED: IBUP-232 PO (19:05)
[2018-01-25] MEDS ORDERED: ORPH100T2 PO (19:05)
[2018-01-25 20:54] LABS: BILIRUBIN, URINE NEG (NEG); BLOOD, URINE SMALL (NEG); GLUCOSE,URINE NEG (NEG); KETONE, URINE NEG (NEG); MUCUS URINE FEW /lpf (OCC); NITRITE,URINE NEG (NEG); SQUAMOUS EPITHELIAL CELL URINE <1 /hpf (0-5); URINE COLOR Straw (YELLW/STRAW); URINE LEUKOCYTE ESTERASE TRACE (NEG)
== END 2018-01-25 20:04 | disposition home or self-care (01) ==
LOC: NEPD 13:17
DX: G82.20 Paraplegia, unspecified (principal); M62.838 Other muscle spasm; N31.9 Neuromuscular dysfunction of bladder, unspecified
CPT/HCPCS: 81001; 96372; 99283; J1885; J2360

== ENCOUNTER 2018-01-28 11:20 | Emergency (ER) | payer SELFPAY ==
[~2018-01-28] VITALS: Ht 193 cm; Wt 70.0 kg
[~2018-01-28 11:20] MED LIST changes: +IBUP-232 PO; +ORPH100T2 PO
[2018-01-28 11:35] VITALS: BP 109/71; PULSE 110; RESP 16; TEMP 97.6; O2SAT 100
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
[2018-01-28] MEDS ORDERED: DIAZEPAM 10 MG TAB PO ONE (13:00)
--- NOTE | 2018-01-28 15:33 | RADRPT ---
EXAM DATE: 01/28/2018 3:11 PM EDT AGE/SEX: 22 years / Male INDICATIONS: Lower back pain for one week. CLINICAL DATA: This is the patient's initial encounter. Patient reports that signs and symptoms have been present for 1 week and indicates a pain score of 7/10. MEDICAL/SURGICAL HISTORY: . paraplegia . t-spine surgery RADIATION DOSE: 16.92 CTDI (mGy) COMPARISON: [facility] [place], [place] LUMBAR SPINE W/O CONTRAST, 11/20/2017. . TECHNIQUE: Contiguous axial images were acquired with a multirow detector CT scanner without contras t. Multiplanar reconstructions in the sagittal and coronal plane were also performed. Using automate d exposure control and adjustment of the mA and/or kV according to patient size, radiation dose was k ept as low as reasonably achievable to obtain optimal diagnostic quality images. DICOM format image data is available electronically for review and comparison. FINDINGS: Vertebrae: Vertebral body heights are intact. Redemonstration of bilateral pars defects at L5. Alignment: Slight levoscoliosis of the lumbar spine centered at L3-4. Sagittal alignment is maintain ed. 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 No significant adenopathy. Aorta is non-aneurysmal. T12-L1: The thecal sac has a normal diameter. No evidence of disc bulge or protrusion. The neural foramina are patent bilaterally. L1-L2: The thecal sac has a normal diameter. No evidence of disc bulge or protrusion. The neural f oramina are patent bilaterally. L2-L3: The thecal sac has a normal diameter. No evidence of disc bulge or protrusion. The neural f oramina are patent bilaterally. L3-L4: Minimal diffuse disc bulge without significant central canal or bony neural foraminal narrowi ng. L4-L5: Mild diffuse disc bulge with minimal effacement anterior thecal sac. No significant bony neur al foraminal narrowing. L5-S1: Mild diffuse disc bulge with minimal effacement anterior thecal sac. Mild facet arthropathy. Mild caudal left neural foraminal narrowing. CONCLUSION: 1. Stable CT examination of the lumbar spine. 2. Chronic L5 pars defects without spondylolisthesis. 3. Minimal disc disease at L4-5 and L5-S1 without significant central canal narrowing. 4. Mild caudal left neural foraminal narrowing at L5-S1. Electronically signed by: Robbie Aleman MD 01/28/2018 3:32 PM EDT
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
== END 2018-01-28 16:33 | disposition home or self-care (01) ==
LOC: NEPK 11:20
DX: G82.20 Paraplegia, unspecified (principal)
CPT/HCPCS: 72131; 72170; 99284